=== PATIENT | female | born 1980 | race African-American/Black ===

== ENCOUNTER 2016-08-28 14:13 | Day surgery (SDC) | payer OTHER ==
[~2016-08-28] VITALS: Ht 160 cm; Wt 79.1 kg
[2016-08-28 14:50] VITALS: BP 129/80; PULSE 75; TEMP 97.3
[2016-08-28] MEDS ORDERED: MOTRIN 800800 MG/TAB PO (14:55)
[2016-08-28] MEDS ORDERED: ADDERALL XR 10M10 MG PO (14:55)
[2016-08-28 18:00] VITALS: BP 134/94; PULSE 61; TEMP 98.2
[2016-08-28 18:30] VITALS: BP 116/86; PULSE 74; TEMP 98.2
[2016-08-28 18:45] VITALS: BP 116/86; PULSE 74
== END 2016-08-28 21:10 | disposition home or self-care (01) ==
LOC: SDCO 14:13 → SURG 17:57 → SDCO 21:10
DX: R10.12 Left upper quadrant pain (principal)
CPT/HCPCS: OP; C1769; J0690; J1100; J1885; J2405; J2704; J3010; J7120; Q9967